=== PATIENT | female | born 1990 | race Caucasian/White ===

== ENCOUNTER 2016-09-29 13:13 | Emergency (ER) | payer BC, OTHER ==
[~2016-09-29] VITALS: Ht 157.4 cm; Wt 59.0 kg
[~2016-09-29 13:13] MED LIST: AMOXICILLIN500 MG PO; AMOXIL500 MG PO; ANAPROX DS550 MG PO; CLARITIN10 MG PO; FLAGYL500 MG PO; FLEXERIL5 MG PO; MEDROL DOSEPAK4 MG PO; MOTRIN800 MG PO; PROVENTIL0.09 MG/AC IH; ROBITUSSIN AC 10 MG/ PO; TYLENOL WITH CO1 TA1 PO; ZITHROMAX Z PA250 MG PO; ZYRTEC10 MG PO
[2016-09-29] MEDS ORDERED: CEPHALEXIN500 M1 PO (13:27)
== END 2016-09-29 13:57 | disposition home or self-care (01) ==
LOC: ED 13:13
DX: L02.412 Cutaneous abscess of left axilla (principal); F17.200 Nicotine dependence, unspecified, uncomplicated

== ENCOUNTER 2016-12-27 10:03 | Emergency (ER) | payer BC, OTHER ==
[~2016-12-27] VITALS: Ht 157.4 cm; Wt 77.1 kg
[~2016-12-27 10:03] MED LIST changes: +CEPHALEXIN500 M1 PO
[2016-12-27 10:35] LABS: BILIRUBIN NEGATIVE (NEGATIVE); BLOOD TRACE-INTACT (NEGATIVE); CLARITY CLOUDY (CLEAR); COLOR YELLOW (YELLOW); GLUCOSE NEGATIVE (NEGATIVE); KETONE TRACE (NEGATIVE); LEUKO ESTERASE 1+ (NEGATIVE); NITRITE NEGATIVE (NEGATIVE); PH 6.5 (5.0-9.0); PROTEIN TRACE (NEGATIVE)
[2016-12-27 10:38] LABS: BASO # 0.1 10*3/uL (0.0-0.1); BASO % 0.6 % (0.0-1.0); EOS # 0.4 10*3/uL (0.0-0.4); EOS % 3.3 % (1.0-4.0); HEMATOCRIT 41.3 % (37.0-47.0); HEMOGLOBIN 14.3 g/dl (12.0-16.0); LYMPH # 3.8 10*3/uL (1.3-4.4); LYMPH % 36.2 % (27.0-41.0); MEAN CELL VOLUME 91.2 fl (81.0-99.0); MEAN CORPUSCULAR HGB 31.6 pg (27.0-31.0); MEAN CORPUSCULAR HGB CONC 34.6 g/dl (33.0-37.0); MEAN PLATELET VOLUME 10.1 fl (9.6-12.3); MONO # 0.6 10*3/uL (0.1-1.0); NEUT # 5.7 10*3/uL (2.3-7.9); NEUT % 53.6 % (47.0-73.0); PLATELET COUNT AUTOMATED 289 10*3/uL (130-400); RED BLOOD COUNT 4.53 10*6/uL (4.10-5.10); RED CELL DISTRI WIDTH 12.5 % (0-14.5); WHITE BLOOD COUNT 10.6 10*3/uL (4.8-10.8)
[2016-12-27 10:42] LABS: BACTERIA 1+; EPITHELIAL CELLS 16-20; RBC 0-2 rbc/hpf (0-2); WBC 21-30 wbc/hpf (0-5)
[2016-12-27 10:43] LABS: URINE REFLEX COMMENT YES (NO)
[2016-12-27 10:53] LABS: ALBUMIN 3.8 gm/dl (3.1-4.5); ALKALINE PHOSPHATASE 79 U/L (45-117); BILIRUBIN, TOTAL 0.3 mg/dl (0.2-1.0); BUN 13 mg/dl (7-24); CARBON DIOXIDE 24 mmol/L (21-32); CHLORIDE 109 mmol/L (98-107); EST GLOM FILT AFRICAN AMERICAN > 60 ml/min; GLUCOSE 92 mg/dL (65-99); POTASSIUM 4.2 mmol/L (3.5-5.1); SGOT/AST 12 IU/L (3-35); SGPT/ALT 18 U/L (12-78); SODIUM 145 mmol/L (136-145); TOTAL PROTEIN 6.7 gm/dL (6.4-8.2)
[2016-12-27] MEDS ORDERED: MACROBID100 M1 PO (12:54)
== END 2016-12-27 13:02 | disposition home or self-care (01) ==
LOC: ED 10:03
PROVIDERS: Emergency Medicine
DX: N39.0 Urinary tract infection, site not specified (principal); F17.200 Nicotine dependence, unspecified, uncomplicated

== ENCOUNTER 2017-08-26 20:42 | Emergency (ER) | payer BC, OTHER ==
[~2017-08-26] VITALS: Ht 160 cm; Wt 77.1 kg
[~2017-08-26 20:42] MED LIST changes: +MACROBID100 M1 PO
[2017-08-26 21:34] LABS: BASO # 0.1 10*3/uL (0.0-0.1); BASO % 0.3 % (0.0-1.0); EOS # 0.3 10*3/uL (0.0-0.4); EOS % 2.3 % (1.0-4.0); HEMATOCRIT 40.1 % (37.0-47.0); HEMOGLOBIN 13.4 g/dl (12.0-16.0); LYMPH # 4.5 10*3/uL (1.3-4.4); LYMPH % 30.7 % (27.0-41.0); MEAN CELL VOLUME 91.6 fl (81.0-99.0); MEAN CORPUSCULAR HGB 30.6 pg (27.0-31.0); MEAN CORPUSCULAR HGB CONC 33.4 g/dl (33.0-37.0); NEUT # 8.6 10*3/uL (2.3-7.9); NEUT % 59.4 % (47.0-73.0); PLATELET COUNT AUTOMATED 297 10*3/uL (130-400); RED BLOOD COUNT 4.38 10*6/uL (4.10-5.10); RED CELL DISTRI WIDTH 12.4 % (0-14.5); WHITE BLOOD COUNT 14.5 10*3/uL (4.8-10.8)
[2017-08-26 21:39] LABS: BILIRUBIN NEGATIVE (NEGATIVE); BLOOD NEGATIVE (NEGATIVE); CLARITY SL CLOUDY (CLEAR); COLOR YELLOW (YELLOW); GLUCOSE NEGATIVE (NEGATIVE); KETONE NEGATIVE (NEGATIVE); LEUKO ESTERASE NEGATIVE (NEGATIVE); NITRITE NEGATIVE (NEGATIVE); UROBILINOGEN 0.2 E.U./dl (0.2-1.0)
[2017-08-26 21:43] LABS: BACTERIA 3+; RBC 0-2 rbc/hpf (0-2)
[2017-08-26 21:50] LABS: ALBUMIN 3.8 gm/dl (3.1-4.5); ALKALINE PHOSPHATASE 93 U/L (45-117); BUN 15 mg/dl (7-24); CHLORIDE 108 mmol/L (98-107); LIPASE 114 U/L (73-393); POTASSIUM 4.1 mmol/L (3.5-5.1); SGOT/AST 13 IU/L (3-35); SGPT/ALT 18 U/L (12-78); SODIUM 140 mmol/L (136-145); TOTAL PROTEIN 7.1 gm/dL (6.4-8.2)
[2017-08-26 21:55] LABS: BETA-HCG, QUANT < 1.0 mIU/mL (1-3)
== END 2017-08-26 23:17 | disposition home or self-care (01) ==
LOC: ED 20:42
PROVIDERS: Student in an Organized Health Care Education/Training Program
DX: N39.0 Urinary tract infection, site not specified (principal); F17.200 Nicotine dependence, unspecified, uncomplicated; Z88.6 Allergy status to analgesic agent

== ENCOUNTER 2017-08-27 19:23 | Emergency (ER) | payer BC, OTHER ==
[~2017-08-27] VITALS: Ht 160 cm; Wt 72.6 kg
== END 2017-08-27 22:21 | disposition home or self-care (01) ==
LOC: ED 19:23
DX: R06.02 Shortness of breath (principal); R05 Cough; R11.0 Nausea; F17.200 Nicotine dependence, unspecified, uncomplicated; Z88.6 Allergy status to analgesic agent

== ENCOUNTER → 2018-08-01 | Outpatient (CLI) | payer OTHER | END | disposition home or self-care (01) | LOC: LAB 07:32 | DX: Z34.91 Encounter for supervision of normal pregnancy, unspecified, first trimester (principal); R73.09 Other abnormal glucose ==

== ENCOUNTER → 2018-08-22 | Outpatient (CLI) | payer OTHER | END | disposition home or self-care (01) | LOC: US 10:35 | DX: Z34.01 Encounter for supervision of normal first pregnancy, first trimester (principal); Z3A.10 10 weeks gestation of pregnancy ==

== ENCOUNTER 2020-08-28 15:47 | Emergency (ER) | payer OTHER ==
[~2020-08-28] VITALS: Ht 157.4 cm; Wt 95.3 kg
[2020-08-28] MEDS ORDERED: CEPHALEXIN500 M1 PO (16:37)
== END 2020-08-28 16:55 | disposition home or self-care (01) ==
LOC: ED 15:47
DX: S20.112A Abrasion of breast, left breast, initial encounter (principal); Z88.8 Allergy status to other drugs, medicaments and biological substances; X58.XXXA Exposure to other specified factors, initial encounter; Y93.89 Activity, other specified; Y92.89 Other specified places as the place of occurrence of the external cause; Y99.8 Other external cause status

== ENCOUNTER → 2020-09-26 | Outpatient (CLI) | payer OTHER | END | disposition home or self-care (01) | LOC: US 11:38 | PROVIDERS: ATTEND Nurse Practitioner Women's Health | DX: N92.0 Excessive and frequent menstruation with regular cycle (principal) ==

== ENCOUNTER → 2020-11-22 | Outpatient (CLI) | payer OTHER | END | disposition home or self-care (01) | LOC: US 15:48 | PROVIDERS: ATTEND Nurse Practitioner Women's Health | DX: N92.1 Excessive and frequent menstruation with irregular cycle (principal) ==

== ENCOUNTER 2020-12-15 13:14 | Emergency (ER) | payer OTHER ==
[~2020-12-15] VITALS: Ht 157.4 cm; Wt 92.1 kg
[2020-12-15 13:54] LABS: BASO # 0.1 10*3/uL (0.0-0.1); BASO % 0.7 % (0.0-1.0); EOS # 0.2 10*3/uL (0.0-0.4); EOS % 1.5 % (1.0-4.0); HEMATOCRIT 44.3 % (37.0-47.0); LYMPH # 3.7 10*3/uL (1.3-4.4); LYMPH % 35.9 % (27.0-41.0); MEAN CELL VOLUME 91.9 fl (81.0-99.0); MEAN CORPUSCULAR HGB 30.5 pg (27.0-31.0); MEAN CORPUSCULAR HGB CONC 33.2 g/dl (33.0-37.0); MEAN PLATELET VOLUME 10.3 fl (9.6-12.3); MONO # 0.5 10*3/uL (0.1-1.0); NEUT # 5.8 10*3/uL (2.3-7.9); NEUT % 56.5 % (47.0-73.0); PLATELET COUNT AUTOMATED 332 10*3/uL (130-400); RED BLOOD COUNT 4.82 10*6/uL (4.10-5.10); RED CELL DISTRI WIDTH 12.6 % (0-14.5); WHITE BLOOD COUNT 10.3 10*3/uL (4.8-10.8)
[2020-12-15 14:09] LABS: ALBUMIN 3.8 gm/dl (3.1-4.5); ALKALINE PHOSPHATASE 84 U/L (45-117); BUN 13 mg/dl (7-24); CHLORIDE 109 mmol/L (98-107); CREATININE 0.74 mg/dL (0.55-1.02); LIPASE 67 U/L (73-393); SGOT/AST 13 IU/L (3-35); SGPT/ALT 19 U/L (12-78); SODIUM 139 mmol/L (136-145); TOTAL PROTEIN 7.1 gm/dL (6.4-8.2)
[2020-12-15 14:13] LABS: BETA-HCG, QUANT < 1.0 mIU/mL (1-3); TROPONIN I < 0.015 ng/ml (<0.045)
== END 2020-12-15 18:25 | disposition home or self-care (01) ==
LOC: ED 13:14
PROVIDERS: Emergency Medicine
DX: R00.2 Palpitations (principal); T42.6X5A Adverse effect of other antiepileptic and sedative-hypnotic drugs, initial encounter; Z88.6 Allergy status to analgesic agent; Z79.2 Long term (current) use of antibiotics; Y92.89 Other specified places as the place of occurrence of the external cause

== ENCOUNTER → 2020-12-30 | Outpatient (CLI) | payer OTHER | END | disposition home or self-care (01) | LOC: MRI 10:43 | PROVIDERS: ATTEND Nurse Practitioner Family | DX: G43.909 Migraine, unspecified, not intractable, without status migrainosus (principal); J03.90 Acute tonsillitis, unspecified ==

== ENCOUNTER 2022-12-12 14:41 | Emergency (ER) | payer BC, OTHER ==
[~2022-12-12] VITALS: Ht 157.4 cm; Wt 90.7 kg
== END 2022-12-12 15:52 | disposition home or self-care (01) ==
LOC: ED 14:41
DX: S60.221A Contusion of right hand, initial encounter (principal); I10 Essential (primary) hypertension; Z88.6 Allergy status to analgesic agent; Z79.2 Long term (current) use of antibiotics; V19.9XXA Pedal cyclist (driver) (passenger) injured in unspecified traffic accident, initial encounter; Y93.I9 Activity, other involving external motion; Y92.488 Other paved roadways as the place of occurrence of the external cause; Y99.8 Other external cause status

== ENCOUNTER 2023-10-23 14:55 | Emergency (ER) | payer BC, OTHER ==
[~2023-10-23] VITALS: Ht 157.4 cm; Wt 96.2 kg
[2023-10-23] MEDS ORDERED: VYVANSE30 MG PO (15:05)
[2023-10-23] MEDS ORDERED: CEPHALEXIN500 M1 PO (15:19)
[2023-10-23] MEDS ORDERED: CEPHALEXIN 500 MG CAP PO ONE (15:20)
[2023-10-23] MEDS ORDERED: methylPREDNISolone sod succ 125 MG VIAL IM ONE (15:20)
== END 2023-10-23 15:22 | disposition home or self-care (01) ==
LOC: ED 14:55
DX: L03.115 Cellulitis of right lower limb (principal); Z88.6 Allergy status to analgesic agent; Z79.899 Other long term (current) drug therapy

== ENCOUNTER → 2024-04-14 | Outpatient (CLI) | payer BC, OTHER ==
[~2024-04-14] MED LIST changes: +VYVANSE30 MG PO
== END | disposition home or self-care (01) ==
LOC: RAD 09:02
PROVIDERS: ATTEND Chiropractor
DX: M54.2 Cervicalgia (principal); M54.6 Pain in thoracic spine; M25.78 Osteophyte, vertebrae; M54.50 Low back pain, unspecified

== ENCOUNTER 2024-08-08 22:51 | Emergency (ER) | payer BC, OTHER ==
[~2024-08-08] VITALS: Ht 157.4 cm; Wt 104.3 kg
[2024-08-08 23:56] LABS: BASO # 0.1 10*3/uL (0.0-0.1); BASO % 0.6 % (0.0-1.0); EOS % 0.1 % (1.0-4.0); HEMATOCRIT 38.9 % (37.0-47.0); MEAN CELL VOLUME 92.4 fl (81.0-99.0); MEAN CORPUSCULAR HGB 30.2 pg (27.0-31.0); MEAN CORPUSCULAR HGB CONC 32.6 g/dl (33.0-37.0); MEAN PLATELET VOLUME 9.6 fl (9.6-12.3); MONO # 0.9 10*3/uL (0.1-1.0); MONO % 9.5 % (3.0-9.0); NEUT # 6.3 10*3/uL (2.3-7.9); NEUT % 70.7 % (47.0-73.0); PLATELET COUNT AUTOMATED 288 10*3/uL (130-400); RED BLOOD COUNT 4.21 10*6/uL (4.10-5.10); RED CELL DISTRI WIDTH 12.6 % (0-14.5)
[2024-08-09 00:16] LABS: BUN 10 mg/dl (9-23); CHLORIDE 105 mmol/L (98-107); POTASSIUM 4.1 mmol/L (3.4-5.1)
[2024-08-09] MEDS ORDERED: Ondansetron4 MG PO (01:39)
[2024-08-09] MEDS ORDERED: MEDROL DOSEPAK4 MG PO (01:39)
== END 2024-08-09 01:58 | disposition home or self-care (01) ==
LOC: ED 22:51
PROVIDERS: Internal Medicine
DX: B34.9 Viral infection, unspecified (principal); Z79.899 Other long term (current) drug therapy; Z88.8 Allergy status to other drugs, medicaments and biological substances; Z20.822 Contact with and (suspected) exposure to COVID-19